=== PATIENT | female | born 1955 | race Caucasian/White ===

== ENCOUNTER 2023-10-19 11:23 | Emergency (ER) | payer OTHER, SELFPAY ==
[2023-10-19 12:15] VITALS: BMI 28.5
[2023-10-19 12:41] VITALS: BP 140/64
[2023-10-19 12:55] VITALS: BP 144/76
--- NOTE | 2023-10-19 12:56 | ED.GENMED ---
History of Present Illness
General
Chief Complaint: Abdominal Pain
Source: patient
Exam Limitations: none
Time Seen by Provider: 10/19/23 12:27
Nursing documentation reviewed up to this point in time: agreed with
Travel History
Have you had any contact with someone who has COVID-19?: Yes
Comment: COVID + 10/14
Do you have any symptoms of coronavirus? Fever > 100 degrees, chills, cough, shortness of breath, sore throat, loss of taste or smell, muscle aches, or headache?: Yes
Symptoms:: COVID + 10/14
History of Present Illness
History of Present Illness:
67-year-old female with a past medical history hypertension, hyperlipidemia, hypothyroidism who presents to the emergency department for evaluation of abdominal pain. Patient notably diagnosed with COVID�she says she started having symptoms 8 days
ago initially tested negative at her primary doctor's office shortly after onset and then tested positive at home on 10/14. Her primary symptoms with COVID have been body aches and fatigue with URI symptoms. She has not had any shortness of breath
or chest pain. She presents today because she has been having abdominal pain that she says started this morning. She says initially she felt a pressure in the left lower quadrant since then has become more of a sharp pain radiating from the left
lower quadrant into her left groin region. Symptoms have been constant and unremitting since that time she says. She says she had associated nausea OR vomiting. She says she had a few episodes of diarrhea. She denies any dysuria, hematuria,
change in urinary frequency. She says that she has had kidney stones in the past�she says that symptoms are similar although distribution/location is somewhat different she says. She does have a prior surgical history of gastric bypass and
.
Past History
Past History
ED Past Medical History: HTN, Hypercholesterolemia, Hypothyroidism, Psychiatric (Anxiety) and Other (Migraines)
ED Past Surgical History: Cholecystectomy, , Orthopedic, Tonsilectomy and Other (gastric sleeve)
Social History
Tobacco: Former smoker
Alcohol: Occasional
Drug: None
Personal:
Living: alone
Employment: Employed
Review of Systems
Review of Systems
All Other Systems: ROS reviewed and negative except as documented in HPI and ROS
Constitutional: Reports fatigue; Denies fever or chills
EENT: Reports runny nose; Denies sore throat
Respiratory: Reports cough; Denies trouble breathing
Cardiac: Denies chest pain or palpitations
ABD/GI: Reports abdominal pain, nausea, vomiting and diarrhea
: Denies dysuria, frequency or flank pain
Musculoskeletal: Denies edema
Neurological: Denies dizzy, headache, weakness or numbness
Phy Exam
Physical Exam
Physical Exam:
General: Awake, alert, oriented x3; no acute distress
Head: Normocephalic, atraumatic
Eyes: Conjunctiva normal, sclera anicteric
Throat: Airway intact, handling secretions
Neck: Trachea midline, supple without meningismus
Lungs: Clear to auscultation bilaterally, no wheezing, rales, rhonchi
Heart: Regular rate and rhythm, no murmurs, gallops, or rubs
Abd: Soft, non distended, mildly tender left lower quadrant with no peritoneal signs and no abdominal masses
Back: No CVA tenderness
Neuro: No gross deficits
Skin: no rash
Extremities: No edema in extremities, equal pulses in all extremities
Scores
Heart Failure Risk
Heart Failure Risk Score: Not Applicable
Heart Score for Chest Pain Patients
STEMI patient?: Not applicable
Withdrawal Assessment of Alcohol
Withdrawal Assessment Completed?: Not applicable
Course
Orders/Labs/Results
Orders:
Orders
10/19/23 12:28
CT Abd/pelvis W Iv Cont Urgent
Comment:
Reason For Exam: LLQ abd pain
Complete Blood Count/With Diff Urgent
Comprehensive Metabolic Panel Urgent
Urinalysis Reflex To Culture Urgent
Date Specimen was Collected: 10/19/23
Time Specimen was Collected: 12:31
10/19/23 12:29
Vital Signs- Treatment ONCE
Frequency: Once
Comment: BP
Vital Signs
Initial and Last Documented VS:
Initial Vital Signs
Temp Pulse Resp Pulse Ox
36.9 C 86 18 98
10/19/23 11:25 10/19/23 11:25 10/19/23 11:25 10/19/23 11:25
Last Documented Vital Signs
Temp Pulse Resp BP Pulse Ox
36.9 C 85 19 140/64 97
10/19/23 11:25 10/19/23 12:41 10/19/23 12:41 10/19/23 12:41 10/19/23 12:41
MDM/Problems Addressed
Differential Diagnosis Includes:
Nephrolithiasis, UTI/pyelonephritis, diverticulitis, colitis, enteritis
MDM/Problems Addressed:
67-year-old female presents for evaluation of abdominal pain that started this morning in the setting of recent COVID infection. Vital signs here within normal limits. Physical exam as above. Plan placed IV check labs including CBC and CMP,
urinalysis. Check CT of the abdomen pelvis. Will treat pain. Monitor closely reassess after the above.
*Radiology
Radiology exam reviewed: radiology read reviewed
*Pulse Oximetry
Patient hypoxic: no
*Critical Care Note
Total Time (30-74mins, 75-104mins- exclusive of procedures): Not Applicable
Data Reviewed
Review of Other/Old Records Reveals: Labs and Records
Source: patient and records
ED Attending Note
-
Portions of this chart may have been created with voice recognition software.� Occasional wrong word or��sound alike� substitutions may have occurred due to the inherent limitations of voice recognition software.
Discharge Plan
Departure
Prescriptions:
No Action
multivitamin 1 EACH tablet
1 ea PO DAILY
valsartan-hydrochlorothiazide 1 EACH tablet
1 ea PO DAILY
levothyroxine 88 MCG tablet
88 mcg PO DAILY
simvastatin 20 MG tablet
20 mg PO DAILY
sertraline 50 MG tablet
50 mg PO DAILY
Glucosamine Sulf-Chondroitin 1 EACH capsule
1 cap PO DAILY
Vitamin B12
1 tab PO DAILY
Vitamin B6
1 tab PO DAILY
furosemide 20 MG tablet
20 mg PO DAILY PRN (Reason: Leg swelling) Qty: 7 0RF
Interventions
Interventions:
*Risk Screen - Suicide Last Done: 10/19/23 12:15
*General Assessment Last Done: 10/19/23 11:25
*Neglect/Abuse Screening Last Done: 10/19/23 12:15
ED- Fall Risk Assessment Last Done: 10/19/23 12:15
*ED COVID-19 Vaccine History Last Done: 10/19/23 11:25
LH-Rptpij-Ygwbgaksje Assessment Last Done: 10/19/23 12:15
[2023-10-19 13:00] VITALS: BP 119/104
[2023-10-19 13:14] LABS: % Basophils 0.3 % (0-2); % Eosinophils 0.4 % (0-6); % Immature Granulocytes 0.6 % (0-0.5); % Lymphocytes 9.9 % (20.5-51.1); % Monocytes 2.9 % (1.7-9.3); % Neutrophils 85.9 % (42.2-75.2); Absolute Immature Granulocytes 0.1 10^3/uL (0-0.05); Absolute Lymphocytes 1.1 10^3/uL (1.2-3.4); Absolute Monocytes 0.3 10^3/uL (0.1-0.6); Absolute Neutrophils 9.3 10^3/uL (1.4-6.5); Hematocrit 37.8 % (37.0-47.0); Hemoglobin 13.1 g/dL (12.0-16.0); Mean Corp Hgb Conc. 34.7 g/dL (33.0-37.0); Mean Corpuscular Hgb 29.6 pg (27.0-31.0); Mean Corpuscular Volume 85.5 fL (81.0-99.0); Mean Platelet Volume 11.1 fL (7.4-10.4); Nucleated Red Blood Cells % 0 %; Platelet Count 232 10^3/uL (130-400); Red Blood Cell Count 4.42 10^6/uL (4.20-5.40); Red Cell Dist. Width 14.2 % (11.5-14.5); White Blood Cell Count 10.8 10^3/uL (4.8-10.8)
[2023-10-19 13:28] LABS: ALT (SGPT) 22 U/L (0-35); AST (SGOT) 33 U/L (14-36); Albumin 4.2 g/dl (3.5-5.0); Alkaline Phosphatase 116 U/L (38-126); Blood Urea Nitrogen 24 mg/dl (7-17); Calcium 9.3 mg/dl (8.4-10.2); Carbon Dioxide 26 mmol/L (22-30); Chloride 104 mmol/L (98-107); Estimated Creatinine Clearance 61 ml/min; Glucose 132 mg/dl (70-99); Potassium 3.8 mmol/L (3.5-5.1); Sodium 138 mmol/L (135-145); Total Bilirubin 0.8 mg/dl (0.2-1.3); Total Protein 7.9 g/dl (6.3-8.2); eGFR > 60.00
[2023-10-19 14:41] LABS: Urine Albumin Negative (Neg - Trace); Urine Bilirubin Negative (Negative); Urine Character Clear (Clear); Urine Color Yellow; Urine Glucose Negative (Negative); Urine Ketone Negative (Negative); Urine Leukocyte Negative (Negative); Urine Nitrite Negative (Negative); Urine Occult Blood Trace (Negative); Urine Specific Gravity 1.025 (<1.030); Urine Urobilinogen Negative (Neg - 1+)
[2023-10-19 15:01] LABS: Urine Red Blood Cell 0-2 /HPF (0-2); Urine Squamous Cell 0-2 /LPF (Few); Urine White Cell 0-2 /HPF (0-5); Urine Yeast Few (Negative)
[2023-10-19 15:25] VITALS: BP 141/82
[2023-10-19 16:00] VITALS: BP 137/83
--- NOTE | 2023-10-19 16:43 | EDRN ---
the pt pressed the call cano and this RN entered the pts room, the pt stated to this RN, 'What is going on i should know what's wrong with me and i should be out of here by now, where is the doctor?', this RN notified Dr. Rincon
--- NOTE | 2023-10-19 17:05 | EDRN ---
the pt pressed the call cano and this RN entered the pts room, the pt stated to this RN, 'I really just want to know what is going on, i have been waiting here forever and this is really unacceptable, i would like an explanation as to why it takes
this long to get results, where is my doctor', this RN apologized to the pt for her wait and frustration and this RN assured the pt that this RN would convey the pts concerns to Dr. Rincon
--- NOTE | 2023-10-19 17:14 | EDRN ---
Dr. Rincon currently at the pts bedside speaking with the pt
== END 2023-10-19 17:29 | disposition home or self-care (01) ==
LOC: EMR 11:23
PROVIDERS: EMERGENCY PHYSICIAN Emergency Medicine; FAMILY PHYSICIAN Nurse Practitioner Family
DX: N20.0 Calculus of kidney (principal); I10 Essential (primary) hypertension; E78.00 Pure hypercholesterolemia, unspecified; E03.9 Hypothyroidism, unspecified; F41.9 Anxiety disorder, unspecified; Z87.442 Personal history of urinary calculi; Z87.891 Personal history of nicotine dependence; Z90.49 Acquired absence of other specified parts of digestive tract; Z98.84 Bariatric surgery status
CPT/HCPCS: 99284; 74177; 80053; 81003; 81015; 85025; Q9967

== ENCOUNTER 2024-04-23 18:19 | Outpatient (RCR) | payer OTHER, SELFPAY | END 2024-04-23 23:59 | disposition home or self-care (01) | LOC: RPT 18:19 | PROVIDERS: ATTENDING PHYSICIAN Nurse Practitioner Family | DX: M25.579 Pain in unspecified ankle and joints of unspecified foot (principal); M25.511 Pain in right shoulder; M54.2 Cervicalgia; M25.572 Pain in left ankle and joints of left foot | CPT/HCPCS: 97110; 97140; 97162; 97535 ==

== ENCOUNTER 2024-05-26 15:39 | Outpatient (RCR) | payer OTHER, SELFPAY | END 2024-05-26 23:59 | disposition home or self-care (01) | LOC: RPT 15:39 | PROVIDERS: ATTENDING PHYSICIAN Nurse Practitioner Family | DX: M25.572 Pain in left ankle and joints of left foot (principal); M25.511 Pain in right shoulder; M54.2 Cervicalgia; M62.81 Muscle weakness (generalized); V49.60XD Unspecified car occupant injured in collision with unspecified motor vehicles in traffic accident, subsequent encounter | CPT/HCPCS: 97110 ==

== ENCOUNTER 2024-06-04 15:45 | Outpatient (RCR) | payer OTHER, SELFPAY | END 2024-06-04 23:59 | disposition home or self-care (01) | LOC: RPT 15:45 | PROVIDERS: Nurse Practitioner Family | DX: M25.572 Pain in left ankle and joints of left foot (principal); M25.511 Pain in right shoulder; M54.2 Cervicalgia; Z73.6 Limitation of activities due to disability; M62.81 Muscle weakness (generalized) | CPT/HCPCS: 97110 ==

== ENCOUNTER 2024-07-16 16:03 | Outpatient (RCR) | payer OTHER, SELFPAY | END 2024-07-17 13:22 | disposition home or self-care (01) | LOC: RPT 16:03 | DX: M25.572 Pain in left ankle and joints of left foot (principal); M25.511 Pain in right shoulder; M54.2 Cervicalgia; Z73.6 Limitation of activities due to disability; R26.89 Other abnormalities of gait and mobility | CPT/HCPCS: 97110 ==

== ENCOUNTER → 2024-12-15 08:02 | Outpatient (REF) | payer OTHER, SELFPAY | LOC: HWRAD 08:02 | PROVIDERS: ATTENDING PHYSICIAN Physician Assistant; FAMILY PHYSICIAN Nurse Practitioner Family | DX: R22.1 Localized swelling, mass and lump, neck (principal); M25.512 Pain in left shoulder | CPT/HCPCS: 73030; 76536 ==

== ENCOUNTER → 2024-12-26 10:44 | Outpatient (REF) | payer OTHER, SELFPAY | LOC: PAVMRI 10:44 | PROVIDERS: ATTENDING PHYSICIAN Nurse Practitioner Family; FAMILY PHYSICIAN Internal Medicine | DX: H53.9 Unspecified visual disturbance (principal) | CPT/HCPCS: 70553; A9575 ==

== ENCOUNTER 2025-01-14 08:11 | Outpatient (RCR) | payer OTHER, SELFPAY | END 2025-01-14 23:59 | disposition home or self-care (01) | LOC: RPT 08:11 | PROVIDERS: ATTENDING PHYSICIAN Physician Assistant Surgical; FAMILY PHYSICIAN Nurse Practitioner Family | DX: M25.512 Pain in left shoulder (principal); M75.82 Other shoulder lesions, left shoulder; Z73.6 Limitation of activities due to disability; M62.81 Muscle weakness (generalized) | CPT/HCPCS: 97110; 97162 ==

== ENCOUNTER 2025-03-06 15:10 | Emergency (ER) | payer OTHER, SELFPAY ==
[2025-03-06 15:25] VITALS: BP 176/92
[2025-03-06 15:52] LABS: Hematocrit 36.5 % (37.0-47.0); Hemoglobin 12.7 g/dL (12.0-16.0); Mean Corp Hgb Conc. 34.8 g/dL (33.0-37.0); Mean Corpuscular Volume 87.7 fL (81.0-99.0); Nucleated Red Blood Cells % 0 %; Platelet Count 163 10^3/uL (130-400); Red Cell Dist. Width 14.7 % (11.5-14.5)
[2025-03-06 16:05] LABS: ALT (SGPT) 25 U/L (0-35); AST (SGOT) 28 U/L (14-36); Albumin 4.3 g/dl (3.5-5.0); Alkaline Phosphatase 91 U/L (38-126); Blood Urea Nitrogen 15 mg/dl (7-17); Calcium 9.2 mg/dl (8.4-10.2); Carbon Dioxide 31 mmol/L (22-30); Chloride 105 mmol/L (98-107); Glucose 119 mg/dl (70-99); Lipase 138 U/L (23-300); Potassium 3.5 mmol/L (3.5-5.1); Sodium 140 mmol/L (135-145); Total Protein 7.5 g/dl (6.3-8.2); eGFR > 60.00
--- NOTE | 2025-03-06 16:36 | ED.GENMED ---
History of Present Illness
General
Chief Complaint: Abdominal Pain
Source: patient
Exam Limitations: none
Time Seen by Provider: 03/06/25 16:36
History of Present Illness
History of Present Illness:
69-year-old female presents complaining of right-sided and lower abdominal pain starting yesterday it waxes and wanes. There was associated dry heaves. She is on Wegovy and is about to start her second week of the higher dose of medication. She
has a prior surgical history of cholecystectomy and C-sections. No fevers. She has been moving her bowels and urinating normally. No other complaints at this time
Past History
Past History
ED Past Medical History: HTN, Hypercholesterolemia, Hypothyroidism, Psychiatric (Anxiety) and Other (Migraines)
ED Past Surgical History: Cholecystectomy, , Orthopedic, Tonsilectomy and Other (gastric sleeve)
Social History
Tobacco: Former smoker
Alcohol: Occasional
Drug: None
Personal:
Living: alone
Employment: Employed
Phy Exam
Physical Exam
Physical Exam:
General: Well-appearing female no acute respiratory distress
HEENT: Normocephalic atraumatic
Heart: Regular rate and rhythm
Lungs: Clear no wheeze
Abdomen is soft tender to the right mid and lower abdomen no guarding or rebound nondistended no costovertebral angle tenderness
Extremities: No cyanosis
Course
Orders/Labs/Results
Orders:
Orders
03/06/25 15:45
Complete Blood Count/With Diff Urgent
Comprehensive Metabolic Panel Urgent
Lipase Urgent
03/06/25 17:00
Urinalysis Reflex To Culture Urgent
Date Specimen was Collected: 03/06/25
Time Specimen was Collected: 15:28
Urine Microscopic Reflex Cult Urgent
Urine Culture Urgent
GILBERTO Source: U
Specimen Description:
Date Specimen was Collected: 03/06/25
Time Specimen was Collected: 15:28
03/06/25 17:06
0.9% Sodium Chloride 1000 ml [Nss] 1,000 ml IV BOLUS
03/06/25 17:07
CT Abd/pelvis W Iv Cont Urgent
Comment:
Reason For Exam: right abdominal pain
Abnormal Lab Results
03/06/25 03/06/25
15:45 17:00
RBC 4.16 L 10^6/uL
(4.20-5.40)
Hct 36.5 L %
(37.0-47.0)
RDW 14.7 H %
(11.5-14.5)
MPV 12.4 H fL
(7.4-10.4)
Carbon Dioxide 31 H mmol/L
(22-30)
Glucose 119 H mg/dl
(70-99)
Leukocyte Esterase Rfl 1+ A
(Negative)
Urine Bacteria (Reflex) Few A
(Negative)
03/06/25 15:45
03/06/25 15:45
Vital Signs
Initial and Last Documented VS:
Initial Vital Signs
Temp Pulse Resp BP Pulse Ox
98.3 F 82 18 176/92 97
03/06/25 15:25 03/06/25 15:25 03/06/25 15:25 03/06/25 15:25 03/06/25 15:25
Last Documented Vital Signs
Temp Pulse Resp BP Pulse Ox
98.3 F 71 16 147/72 94
03/06/25 15:25 03/06/25 20:07 03/06/25 20:07 03/06/25 20:07 03/06/25 20:07
MDM/Problems Addressed
Differential Diagnosis Includes:
Abdominal pain right side. Consider constipation versus renal colic versus appendicitis versus side effect of medication
Will check labs. Given tenderness on exam CT ordered
*Pulse Oximetry
SaO2: 97
Patient hypoxic: no
*Critical Care Note
Total Time (30-74mins, 75-104mins- exclusive of procedures): Not Applicable
Update Note
Update Note:
CT demonstrates subacute to chronic fracture of the right posterior ninth rib. No evidence of appendicitis. Labs reviewed without significant finding. Patient stable for discharge
ED Attending Note
-
Portions of this chart may have been created with voice recognition software.� Occasional wrong word or��sound alike� substitutions may have occurred due to the inherent limitations of voice recognition software.
Discharge Plan
Departure
Patient Disposition: Home (Routine Discharge)
Date of Disposition: 03/06/25
Time of Disposition: 21:25
Patient with high blood pressure during this ER visit?: No
Discharge Problem:
Abdominal pain
Instructions: Abdominal pain in adults - Discharge instructions
Prescriptions:
No Action
multivitamin 1 EACH tablet
1 ea PO DAILY
valsartan-hydrochlorothiazide 1 EACH tablet
1 ea PO DAILY
levothyroxine 88 MCG tablet
88 mcg PO DAILY
simvastatin 20 MG tablet
20 mg PO DAILY
sertraline 50 MG tablet
50 mg PO DAILY
Glucosamine Sulf-Chondroitin 1 EACH capsule
1 cap PO DAILY
Vitamin B12
1 tab PO DAILY
Vitamin B6
1 tab PO DAILY
furosemide 20 MG tablet
20 mg PO DAILY PRN (Reason: Leg swelling) Qty: 7 0RF
tamsulosin [Flomax] 0.4 mg capsule
0.4 mg PO DAILY Qty: 7 0RF
Referrals:
Mercy Phelps CRNP [Family Provider, Internal Medicine]
Activity Restrictions/Additional Instructions:
Return here for worsening symptoms otherwise follow-up with your doctor
Interventions
Interventions:
*Risk Screen - Suicide Last Done: 03/06/25 15:27
*General Assessment Last Done: 03/06/25 15:27
*Neglect/Abuse Screening Last Done: 03/06/25 15:27
*ED- Fall Risk Assessment Last Done: 03/06/25 17:05
*ED COVID-19 Vaccine History Last Done: 03/06/25 15:27
VI-Gvfccw-Gvggfhjzps Assessment Last Done: 03/06/25 17:01
Discharge Date and Time
Print Language: JAPANESE
[2025-03-06 17:05] VITALS: BMI 48.8
[2025-03-06] MEDS: NSS 1000 IV (17:31)
[2025-03-06 17:32] LABS: Urine Character Slightly Cloudy (Clear)
[2025-03-06 17:59] LABS: Urine Squamous Cell 0-2 /LPF (Few)
[2025-03-06 18:00] LABS: Urine Red Blood Cell 0-2 /HPF (0-2)
--- NOTE | 2025-03-06 19:00 | EDRN ---
Report received, patient needing to use restroom, unhooked to walk to bathroom, asking about CT, checked on status looks like she will be going next.
[2025-03-06 20:07] VITALS: BP 147/72
--- NOTE | 2025-03-06 20:55 | EDRN ---
Patient aware her CT is back and the provider will review it and go over results with her, patient ambulated into the restroom without any difficulty and resting comfortably.
== END 2025-03-06 21:47 | disposition home or self-care (01) ==
LOC: EMR 15:10
PROVIDERS: Emergency Medicine; EMERGENCY PHYSICIAN Emergency Medicine; FAMILY PHYSICIAN Nurse Practitioner Family
DX: R10.31 Right lower quadrant pain (principal); I10 Essential (primary) hypertension; E78.00 Pure hypercholesterolemia, unspecified; F41.9 Anxiety disorder, unspecified; E03.9 Hypothyroidism, unspecified; G43.909 Migraine, unspecified, not intractable, without status migrainosus; M84.48XA Pathological fracture, other site, initial encounter for fracture; Z87.891 Personal history of nicotine dependence; Z90.49 Acquired absence of other specified parts of digestive tract; Z88.0 Allergy status to penicillin; Z88.8 Allergy status to other drugs, medicaments and biological substances; Z88.6 Allergy status to analgesic agent; Z91.040 Latex allergy status
CPT/HCPCS: 74177; 80053; 81003; 81015; 83690; 85025; 87086; 96360; 99284; Q9967

== ENCOUNTER → 2025-04-03 08:52 | Outpatient (REF) | payer OTHER, MEDICARE, SELFPAY | LOC: RAD 08:52 | PROVIDERS: ATTENDING PHYSICIAN Nurse Practitioner Family | DX: S22.49XA Multiple fractures of ribs, unspecified side, initial encounter for closed fracture (principal); Z78.0 Asymptomatic menopausal state | CPT/HCPCS: 77080 ==

== ENCOUNTER → 2025-04-22 15:29 | Outpatient (REF) | payer OTHER, SELFPAY | LOC: RAD 15:29 | PROVIDERS: ATTENDING PHYSICIAN Nurse Practitioner Family | DX: R60.0 Localized edema (principal) | CPT/HCPCS: 93971 ==

== ENCOUNTER → 2025-04-24 07:32 | Outpatient (REF) | payer OTHER, SELFPAY | LOC: HWRAD 07:32 | PROVIDERS: ATTENDING PHYSICIAN Nurse Practitioner Family; FAMILY PHYSICIAN Internal Medicine | DX: R10.31 Right lower quadrant pain (principal) | CPT/HCPCS: 76700 ==